=== PATIENT | male | born 1985 | race Caucasian/White ===

== ENCOUNTER 2022-08-26 13:17 | Outpatient (REF) | payer MEDICAID, SELFPAY ==
--- NOTE | ~2022-08-26 | XR_ITS ---
EXAMINATION: XR CHEST 2 VIEWS CLINICAL INFORMATION: Acute cough and recurrent fever. COMPARISON: None. TECHNIQUE: Frontal and lateral views of the chest were obtained. FINDINGS: The heart, great vessels, pulmonary vasculature and mediastinum are normal. The lungs show no focal infiltrate, effusion or pneumothorax. There are patchy foci of airspace disease in the mid right lung and at the lateral left base. There is no acute osseous abnormality. XR/XR chest 2V IMPRESSION: There are nonspecific faint patchy infiltrates noted in the mid right lung and at the lateral left base, likely acute pneumonia. Recommend radiographic follow-up to clearance. A preliminary report was provided by the [facility] on 08/28/2022.
== END 2022-08-26 13:18 | disposition home or self-care (01) ==
LOC: HO.XRAY 13:17
PROVIDERS: PCP Pediatrics; Visit Provider Internal Medicine
DX: R05.1 Acute cough (principal)
CPT/HCPCS: 71046

== ENCOUNTER 2023-08-15 10:52 | Outpatient (REF) | payer MEDICAID, SELFPAY ==
[2023-08-15 14:30] LABS: MANUAL DIFF FLAG NO
[2023-08-15 14:37] LABS: Basophils Absolute Auto 0.1 X10*3/uL (0.0-0.2); Eosinophils Absolute Auto 0.1 X10*3/uL (0.0-0.4); Eosinophils Percent Auto 1.2 % (0-4); Hematocrit 42.8 % (42.0-52.0); Hemoglobin 14.3 g/dl (14.0-18.0); Imm Gran Abs Auto 0.04 X10*3/uL (0.00-0.03); Imm Gran Pct Auto 0.5 % (0.0-0.4); Lymphocytes Absolute Auto 2.8 X10*3/uL (1.2-4.9); Lymphocytes Percent Auto 36.3 % (20-40); Mean Corpuscular HGB Conc 33.4 g/dl (31.0-36.0); Mean Corpuscular Hemoglobin 33.6 pg (27.0-33.0); Mean Corpuscular Volume 100.5 fL (80.0-98.0); Mean Platelet Volume 9.8 fL (9.4-12.4); Monocytes Absolute Auto 0.5 X10*3/uL (0.1-1.2); Monocytes Percent Auto 6.2 % (2-11); Neutrophils Absolute Auto 4.2 x10*3/uL (2.0-8.3); Neutrophils Percent Auto 54.8 % (45-73); Platelet Count 435 X10*3/uL (160-400); Red Blood Count 4.26 X10*6/uL (4.60-5.80); Red Cell Distribution Width 14.7 % (11.0-16.0); White Blood Count 7.7 X10*3/uL (4.8-10.8)
[2023-08-15 15:05] LABS: Alanine Aminotransferase 21 U/L (0-40); Albumin Level 4.2 g/dL (3.5-5.0); Alkaline Phosphatase 94 U/L (39-117); Anion Gap 13 (12-20); Aspartate Amino Transferase 21 U/L (5-37); Bilirubin Total 0.5 mg/dL (0.0-1.0); Blood Urea Nitrogen 9 mg/dL (9-16); Calcium 9.4 mg/dL (8.4-10.2); Carbon Dioxide 26 mmol/L (22-29); Chloride 106 mmol/L (96-108); Cholesterol 223 mg/dL (<200); Estimated Glomerular Filt Rate > 60; Glucose Random 104 mg/dL (60-115); HDL Cholesterol 38 mg/dL (>40); LDL Cholesterol Calculated 150 mg/dL (<100); Sodium 141 mmol/L (135-145); Total Protein 7.4 g/dL (6.5-8.0); Triglycerides 177 mg/dL (<150)
[2023-08-15 15:10] LABS: TSH reflex Free T4 1.46 uIU/mL (0.32-4.0); Vitamin D 25-OH Total 19.4 ng/mL (>30)
[2023-08-17 20:13] LABS: TS Negative Control Passed; TS Panel A 1; TS Panel B 1; TS Positive Control Passed; TSpotTB Negative (Negative)
== END 2023-08-15 10:53 | disposition home or self-care (01) ==
LOC: HO.CHCLDS 10:52
PROVIDERS: Visit Provider Pediatrics
DX: Z00.00 Encounter for general adult medical examination without abnormal findings (principal); Q90.9 Down syndrome, unspecified; E78.5 Hyperlipidemia, unspecified; E55.9 Vitamin D deficiency, unspecified
CPT/HCPCS: 36415; 80053; 80061; 82306; 84443; 85025; 86481

== ENCOUNTER 2024-11-01 11:03 | Outpatient (REF) | payer MEDICAID, SELFPAY ==
--- OUTSIDE RECORDS SUMMARY | 2024-11-01 11:49 | XMS_ITS | Encounter Summary ---
Author Organization [employer] Address [address] [facility] [address] [place] [address] Care Team Providers Care Health Technical Writer Name Role Phone Elizabeth Liao MD Primary Care Provider [phone] Encounter Details Date Type Department Care Team ([facility] st Contact Info) Description 10/28/2024 2:15 PM EDT Office Visit [facility] [address], [place] [phone] Elizabeth Liao MD [address] [place] [address] Down's syndrome (Primary Dx); Gastroesophageal reflux disease without esophagitis; Vitamin D deficiency; Elevated fasting lipid profile; Allergy, subsequent encounter; Obesity (BMI 30.0-34.9); Encounter for immunization Social History Tobacco Use Types Packs/Day Years Used Date Smoking Tobacco: Never Passive Smoke Exposure: Past Smokeless Tobacco: Never Alcohol Use Standard Drinks/Week Comments Never 0 (1 standard drink = 0.6 oz pur e alcohol) Depression Answer Date Recorded Patient Health Questionnaire-9 Score 0 08/15/2023 Patient Health Questionnaire-9 Score 0 08/15/2023 Last PHQ-9: Questionnaire Data Not on file 0 08/15/2023 Housing Stability Answer Date Recorded What is your housing situation today? I have [employer] 08/15/[address] you li ve. Do you have problems with any of the following? None of the above 08/15/2023 Food Insecurity Answer Date Recorded Within the past 12 months, y ou worried that your food would run out before you got money to buy more: Never True 08/15/2023 Within the past 12 months,th e food you bought just didn't last and you didn't have enough money to get more: Never True Transportation Answer Date Recorded In the past 12 months, has l ack of transportation kept you from medical appts, meetings, work or from getting things needed for daily living? No 08/15/2023 Utilities Answer Date Recorded In the past 12 months, has t he electric, gas, oil or water company threatened to shut off services in your home? No 08/15/2023 Depression Answer Date Recorded Patient Health Questionnaire-2 Score 0 08/15/2023 Sex and Gender Information Value Date Recorded Sex Assigned at Male 04/22/2022 10:19 AM EDT Legal Sex Male 10:19 AM EDT Gender Identity Male 04/22/2022 10:19 AM EDT Sexual Orientation Choose not to disclose 2021 10:19 AM EDT documented as of this encounter Last Filed Vital Signs Vital Sign Reading Time Taken Comments Blood Pressure 109/66 10/28/2024 2:12 PM EDT Pulse 102 10/28/2024 2:12 PM EDT Temperature 36.4 ??C (97.6 ??F) 10/28/2024 2:12 PM ED T Respiratory Rate 16 10/28/2024 2:12 PM EDT Oxygen Saturation 97% 10/28/2024 2:12 PM EDT Inhaled Oxygen Concentration - - Weight 47.2 kg (104 lb) 10/28/2024 2:12 PM EDT Height 139.7 cm (4' 7 ) 10/28/2024 2:12 PM EDT Body Mass Index 24.17 10/28/2024 2:12 PM EDT documented in this encounter Progress Notes * Elizabeth Liao MD - 10/28/2024 2:15 PM EDT Subjective Patient ID: Georgi Oconnell is a 38 y.o. male who presents for annual wellness exam. Georgi is a 38-year-old male patient of ours with Down syndrome here with mom for annual health wellness visit. Feels overall well except it seems he was seen recently with GERD symptoms. Started on omeprazole daily 1 week ago. Mom is unsure if it is helping or not so far. States she finds him snacking on food late at night. He still attends program daily and enjoys dancing. No other complaints today. He is due for tetanus booster which she will receive. He is due for fasting blood work which he will also get drawn this week. Review of Systems Constitutional: Negative for activity change, chills, fever and unexpected weight change. Respiratory: Negative for cough, shortness of breath and wheezing. Cardiovascular: Negative for chest pain, palpitations and leg swelling. Gastrointestinal: Negative for abdominal pain and blood in stool. Endocrine: Negative for polydipsia and polyuria. Genitourinary: Negative for decreased urine volume, difficulty urinating, dysuria and hematuria. Musculoskeletal: Negative for arthralgias and gait problem. Skin: Negative for color change and rash. Neurological: Negative for dizziness and headaches. Hematological: Negative for adenopathy. Psychiatric/Behavioral: Negative for dysphoric mood, hallucinations, sleep disturbance and suicidalideas. The patient is not nervous/anxious. Objective BP 109/66 (BP Location: Left arm, Patient Position: Sitting, BP Cuff Size: Adult) [id number] Temp 97.6 ??F (36.4 ??C) (Oral) Resp 16 Ht 4' 7 (1.397 m) Wt 104 lb (47.2 kg) SpO2 97% BMI 24.17 kg/m?? Physical Exam Vitals reviewed. Constitutional: General: He is not in acute distress. Appearance: He is obese. HENT: Head: Normocephalic. Right Ear: Tympanic membrane normal. Left Ear: Tympanic membrane normal. Nose: Nose normal. Mouth/Throat: Mouth: Mucous membranes are moist. Eyes: General: No scleral icterus. Conjunctiva/sclera: Conjunctivae normal. Pupils: Pupils are equal, round, and reactive to light. Cardiovascular: Rate and Rhythm: Normal rate and regular rhythm. Heart sounds: Normal heart sounds. No murmur heard. Pulmonary: Effort: Pulmonary effort is normal. No respiratory distress. Breath sounds: Normal breath sounds. Abdominal: General: There is distension. Palpations: Abdomen is soft. There is no mass. Tenderness: There is no abdominal tenderness. There is no right CVA tenderness, left CVA tenderness, guarding or rebound. Hernia: No hernia is present. Musculoskeletal: Right lower leg: No edema. Left lower leg: No edema. Skin: Capillary Refill: Capillary refill takes less than 2 seconds. Findings: No rash. Neurological: Mental Status: He is alert and oriented to person, place, and time. Psychiatric: Mood and Affect: Mood normal. Behavior: Behavior normal. Thought Content: Thought content normal. Judgment: Judgment normal. Assessment/Plan Diagnoses and all orders for this visit: Down's syndrome Comments: Georgi lives with mom and goes to program every day that he enjoys. Doing well. Orders: - Basic Metabolic Panel, Fasting; Future - Lipase; Future - Lipid Panel, Standard; Future - CBC auto differential; Future - Helicobacter pylori Antigen, EIA, Stool; Future - TSH W/Reflex to FT4; Future - Vitamin D, 25-Hydroxy, Total, Immunoassay; Future - Hepatic Function Panel; Future Gastroesophageal reflux disease without esophagitis Comments: Continue omeprazole as per Dr. Bullard as it was only started about a week ago. Check H. pylori status and treat if needed. Refer to GI if needed. Orders: - Basic Metabolic Panel, Fasting; Future - Lipase; Future - Lipid Panel, Standard; Future - CBC auto differential; Future - Helicobacter pylori Antigen, EIA, Stool; Future - TSH W/Reflex to FT4; Future - Vitamin D, 25-Hydroxy, Total, Immunoassay; Future - Hepatic Function Panel; Future Vitamin D deficiency Comments: Recheck vitamin D level with fasting labs. Treat if needed. Orders: - Basic Metabolic Panel, Fasting; Future - Lipase; Future - Lipid Panel, Standard; Future - CBC auto differential; Future - Helicobacter pylori Antigen, EIA, Stool; Future - TSH W/Reflex to FT4; Future - Vitamin D, 25-Hydroxy, Total, Immunoassay; Future - Hepatic Function Panel; Future Elevated fasting lipid profile Comments: Patient was taking fish oil twice daily but per mom he has given her very hard time to take it. Recheck lipids and treat with statin if needed. Healthy diet Orders: - Basic Metabolic Panel, Fasting; Future - Lipase; Future - Lipid Panel, Standard; Future - CBC auto differential; Future - Helicobacter pylori Antigen, EIA, Stool; Future - TSH W/Reflex to FT4; Future - Vitamin D, 25-Hydroxy, Total, Immunoassay; Future - Hepatic Function Panel; Future Allergy, subsequent encounter Comments: He is not having improvement of seasonal allergies with Zyrtec or loratadine. Switch to Emelyn 180mg daily today. Obesity (BMI 30.0-34.9) Comments: Due for fasting blood work which were ordered today plans to bring him in tomorrow morning call momwith results. Encounter for immunization Comments: Tetanus booster needed and given today without complications. TB test negative last year. Rest of vaccinations up-to-date. Orders: - TDAP VACCINE 7 yrs + Other orders - fexofenadine (Emelyn) 180 MG tablet; Take 1 tablet (180 mg) by mouth Once per day. - ketoconazole (NIZOral) 2 % shampoo; Apply topically 2 (two) times a week. documented in this encounter Plan of Treatment Scheduled Orders Name Type Priority Associated Diagnoses Orde r Schedule Basic Metabolic Panel, Fasting Lab Routine Down's syndrome Gastroesophageal reflux disease without esophagitis Vitamin D deficiency Elevated fasting lipid profile Expected: 10/28/2024 (Approximate), Expires: 10/28/2025 Lipase Lab Routine Down's syndrome Gastroesophageal reflux disease without esophagitis Vitamin D deficiency Elevated fasting lipid profile Expected: 10/28/2024, Expires: 10/28/2025 Lipid Panel, Standard Lab Routine Down's syndrome Gastroesophageal reflux disease without esophagitis Vitamin D deficiency Elevated fasting lipid profile Expected: 10/28/2024 (Approximate), Expires: 10/28/2025 CBC auto differential Lab Routine Down's syndrome Gastroesophageal reflux disease without esophagitis Vitamin D deficiency Elevated fasting lipid profile Expected: 10/28/2024 (Approximate), Expires: 10/28/2025 Helicobacter pylori??Antigen, EIA, Stool Lab Routine Down's syndrome Gastroesophageal reflux disease without esophagitis Vitamin D deficiency Elevated fasting lipid profile Expected: 10/28/2024, Expires: 10/28/2025 TSH W/Reflex to FT4 Lab Routine Down's syndrome Gastroesophageal reflux disease without esophagitis Vitamin D deficiency Elevated fasting lipid profile Expected: 10/28/2024 (Approximate), Expires: 10/28/2025 Vitamin D, 25-Hydroxy, Total, Immunoassay Lab Routine Down's syndrome Gastroesophageal reflux disease without esophagitis Vitamin D deficiency Elevated fasting lipid profile Expected: 10/28/2024 (Approximate), Expires: 10/28/2025 Hepatic Function Panel Lab Routine Down's syndrome Gastroesophageal reflux disease without esophagitis Vitamin D deficiency Elevated fasting lipid profile Expected: 10/28/2024 (Approximate), Expires: 10/28/2025 documented as of this encounter Visit Diagnoses Diagnosis Down's syndrome- Primary Gastroesophageal reflux disease without esophagitis Esophageal reflux Vitamin D deficiency Elevated fasting lipid profile Allergy, subsequent encounter Obesity (BMI 30.0-34.9) Encounter for immunization documented in this encounter Additional Health Concerns Assessment Noted Time PHQ-9 Depression Total Score: 0 08/15/19 24 10:08 AM EST documented as of this encounter Care Teams Health Technical Writer Relationship Specialty Start Date End Date Elizabeth Liao MD [address] [place] [address] PCP - General Family Medicine 06/23/18 documented as of this encounter
--- OUTSIDE RECORDS SUMMARY | 2024-11-01 11:49 | XMS_ITS | Encounter Summary ---
Author Organization [employer] Address [address] [facility] [address] [place] [address] Care Team Providers Care Applique Cutter Name Role Phone Elizabeth Liao MD Primary Care Provider [phone] Reason for Visit * Reason Onset Date Comments Nurse Triage 10/20/2024 Encounter Details Date Type Department Care Team (Late st Contact Info) Description 10/20/2024 Telephone [facility] MEDICINE [address] [place] [address] Elizabeth Liao MD [address] [place], [place] [phone] Nurse Triage Social History Tobacco Use Types Packs/Day Years [...] AM EDT documented as of this encounter Miscellaneous Notes * Telephone Encounter - Danielle Johnston RN - 10/20/2024 10:35 AM EDT Triage call Pt mother reports Pt started with diarrhea x3 10/19/24 AM and vomited last night. Pt woke up with a deep , raspy cough, temp today is 98 but, had high reading yesterday. Pt has had liquid stools today and no further vomiting. Pt reports abdominal pain until either passes diarrhea or vomits. Pt has had a sinus infection back in August of this year and Mother reports the cough is similar. Pt is urinating and drinking adequate liquids. ASK apt in [facility] today at 240pm. Mother agrees with disposition and insurance is verified as active prior to booking. Protocol Used: Diarrhea (Adult) Protocol-Based Disposition: See in Office or Video Visit within 3 Days Video visit not offered Positive Triage Questions: * Mild diarrhea (e.g., 1-3 or more stools than normal in past 24 hours) diarrhea and present > 7days (Exception: Chronic diarrhea that is not worse.) * Patient wants to be seen * All higher-acuity triage questions were negative Care Advice Discussed: * Reassurance and Education - Diarrhea * Fluid Therapy During Mild to Moderate Diarrhea * Food and Nutrition During Mild to Moderate Diarrhea * Wash Your Hands * Expected Course * Reasons To Call Back - Signs of dehydration occur (such as no urine over 12 hours, very dry mouth, lightheaded, etc.) - Moderate diarrhea lasts more than 2 days - Diarrhea lasts over 7 days - You become worse * Telephone Encounter - Alfie Pires - 10/20/2024 9:59 AM EDT Symptoms: Cough, Stools - Unusual Color, Abdominal Pain - Male Outcome: Schedule an urgent appointment (within 4 hours) or talk to a nurse or provider soon Reason: Started within the past 3 days The caller accepted this outcome. Contact pt at [phone] documented in this encounter Plan of Treatment Not on file documented as of this encounter Visit Diagnoses Not on filedocumented in this encounter Additional Health Concerns Assessment Noted Time PHQ-9 Depression Total Score: 0 08/15/19 24 10:08 AM EST documented as of this encounter Care Teams Applique Cutter Relationship Specialty Start Date End Date Elizabeth Liao MD [address] [place] [address] PCP - General Family Medicine 06/23/18 documented as of this encounter
--- OUTSIDE RECORDS SUMMARY | 2024-11-01 11:49 | XMS_ITS | Encounter Summary ---
Author Organization [employer] Address [address] [facility] [address] [place] [address] Care Team Providers Care Riding Instructor Name Role Phone Elizabeth Liao MD Primary Care Provider Reason for Visit * Reason Comments Med Refill Encounter Details Date Type Department Care Team ([facility] st Contact Info) Description 03/05/2023 Refill [facility] [address] [place] [address] Maggie Wolf MD Social History Tobacco Use Types Packs/Day Years Used Date Smoking Tobacco: Never Passive Smoke Exposure: Past Smokeless Tobacco: Never Alcohol Use Standard Drinks/Week Comments Never 0 (1 standard drink = 0.6 oz pur e alcohol) Depression Answer Date Recorded Patient Health Questionnaire-9 Score 0 06/20/2022 Depression Answer Date Recorded Patient Health Questionnaire-2 Score 0 06/20/2022 Sex and Gender Information Value Date Recorded Sex Assigned at Male 04/22/2022 10:19 AM EDT Legal Sex Male 10:19 AM EDT Gender Identity Male 04/22/2022 10:19 AM EDT Sexual Orientation Choose not to disclose 2021 10:19 AM EDT documented as of this encounter Plan of Treatment Not on file documented as of this encounter Visit Diagnoses Not on filedocumented in this encounter Additional Health Concerns Assessment Noted Time PHQ-9 Depression Total Score: 0 06/20/20 22 10:02 AM EST documented as of this encounter Care Teams Riding Instructor Relationship Specialty Start Date End Date Elizabeth Liao MD [address] [place] [address] PCP - General Family Medicine 06/23/18 documented as of this encounter
--- OUTSIDE RECORDS SUMMARY | 2024-11-01 11:49 | XMS_ITS | Encounter Summary ---
Author Organization [employer] Address [address] [facility] [address] [place] [address] Care Team Providers Care Senior Technical Writer Name Role Phone Elizabeth Liao MD Primary Care Provider [phone] Reason for Visit * Reason Onset Date Comments Nurse Triage 06/02/2023 Patient 1 of 2 Encounter Details Date Type Department Care Team (Late st Contact Info) Description 06/02/2023 Telephone [facility] MEDICINE [address] [place] [address] Elizabeth Liao MD [address] [place], [place] [phone] Nurse Triage (Patient 1 of 2/) Social History Tobacco Use Types Packs/Day Years Used Date Smoking Tobacco: Never Passive Smoke Exposure: Past Smokeless Tobacco: Never Alcohol Use Standard Drinks/Week Comments Never 0 (1 standard drink = 0.6 oz pur e alcohol) Depression Answer Date Recorded Patient Health Questionnaire-9 Score 0 06/20/2022 Housing Stability Answer Date Recorded What is your housing situation today? Not on vernell e 04/22/[address] you li ve. Do you have problems with any of the following? None of the above 04/22/2023 Food Insecurity Answer Date Recorded Within the past 12 months, y ou worried that your food would run out before you got money to buy more: Never True 04/22/2023 Within the past 12 months,th e food you bought just didn't last and you didn't have enough money to get more: Never True Transportation Answer Date Recorded In the past 12 months, has l ack of transportation kept you from medical appts, meetings, work or from getting things needed for daily living? No 04/22/2023 Utilities Answer Date Recorded In the past 12 months, has t he [employer], gas, oil or water [employer] threatened to shut off services in your home? No 04/22/2023 Depression Answer Date Recorded Patient Health Questionnaire-2 Score 0 06/20/2022 Sex and Gender Information Value Date Recorded Sex Assigned at Male 04/22/2022 10:19 AM EDT Legal Sex Male 10:19 AM EDT Gender Identity Male 04/22/2022 10:19 AM EDT Sexual Orientation Choose not to disclose 2021 10:19 AM EDT documented as of this encounter Miscellaneous Notes * Telephone Encounter - Danielle Johnston RN - 06/02/2023 10:50 AM EST Triage call Pt mother reports started symptoms of cough, chest pain, and difficulty breathing 05/30/23. Pt denies fever but, reports difficulty breathing , abdominal pain , shoulder and neck pain. Ptis producing white colored phlegm. Pt has hx of Down Syndrome. Pt is short of breath @ times Pt hastested neg for Covid. Pt mother is advised to seek evaluation at closest ED and then call for follow up apt. Pt is advised to monitor for fever, tylenol/ibuprofen for fever of 101 or higher, increaseliquid intake especially warm liquids and Pt agrees. Pt mother agrees with disposition and home care advised. Protocol Used: Cough (Adult) Protocol-Based Disposition: Go to Office or Video Visit Now Video visit offer not recorded Positive Triage Questions: * Mild difficulty breathing (e.g., minimal/no SOB at rest, SOB with walking, pulse < 100) and still present when not coughing * Wheezing is present * All higher-acuity triage questions were negative Care Advice Discussed: * Reassurance and Education - Cough * Cough Medicines * Coughing Spells * Prevent Dehydration * Humidifier * Fever Medicines * Reasons To Call Back - Difficulty breathing - Cough lasts more than 3 weeks - Fever lasts more than 3 days - You become worse * Telephone Encounter - Jaciel Duff - 06/02/2023 10:24 AM EST Symptoms: Cough, Fever, Chest Congestion Outcome: Schedule an urgent appointment (within 1 hour) or talk to a nurse or provider soon Reason: Wheezing (high-pitched whistling sound) The caller accepted this outcome documented in this encounter Plan of Treatment Not on file documented as of this encounter Visit Diagnoses Diagnosis Complete trisomy 21 syndrome Down's syndrome documented in this encounter Additional Health Concerns Assessment Noted Time PHQ-9 Depression Total Score: 0 06/20/20 10:02 AM EST documented as of this encounter Care Teams Senior Technical Writer Relationship Specialty Start Date End Date Elizabeth Liao MD [address] [place] [address] PCP - General Family Medicine 06/23/18 documented as of this encounter
--- OUTSIDE RECORDS SUMMARY | 2024-11-01 11:49 | XMS_ITS | Clinical Summary ---
Author Organization [employer] Address 75 [facility] 7t [place] [address] Care Team Providers Care Fire Hose Curer Name Role Phone Elizabeth Liao MD Primary Care Provider [phone] Allergies No known active allergies Medications triamcinolone (Kenalog) 0.025 % ointmentIndica tions:Complete trisomy 21 syndrome Apply topically 2 times daily. 30 g 3 06/20/20 22 Active fish oil (Fish Oil) 500 MG capsule Take 2 capsules (1,000 mg) by mouth in the morning. 60 capsule 11 09/21/19 23 Active triamcinolone (Kenalog) 0.1 % cream Apply topically if needed in the morning and at bedtime (pain and swelling). 30 g 11 08/15/19 24 Active bacitracin (RA Bacitracin) 500 UNIT/GM ointment Apply topically 2 times daily. 28 g 3 08/15/19 24 Active ergocalciferol (Vitamin D2) 1.25 MG (64846 UT) capsule TAKE ONE CAPSULE ONCE PER WEEK 15 capsule 10/17/19 24 Active cyanocobalamin (Vitamin B-12) 500 MCG tablet TAKE ONE TABLET EVERY MORNING 90 tablet 3 10/24/19 24 Active omeprazole OTC (PriLOSEC OTC) 20 MG EC tablet Take 1 tablet (20 mg) by mouth before breakfast. Do not crush, chew, or split. 30 tablet 11 10/21/19 25 026 Active albuterol 108 (90 Base) MCG/ACT inhaler INHALE 1 PUFF THREE TIMES DAILY 09/05/19 25 Active omeprazole (PriLOSEC) [address] capsule TAKE ONE CAPSULE DAILY BEFORE BREAKFAST 10/21/19 25 Active fexofenadine (Emelyn) 180 MG tablet Take 1 tablet (180 mg) by mouth Once per day. 30 tablet 10/29/19 25 026 Active ketoconazole (NIZOral) 2 % shampoo Apply topically 2 (two) times a week. 120 mL 10/29/19 25 Active cetirizine (ZyrTEC) 10 MG tablet TAKE ONE TABLET BY MOUTH EVERY MORNING 90 tablet 08/01/19 24 025 Discontinued(Th erapy completed) ketoconazole (NIZOral) 2 % shampoo Apply topically 2 (two) times a week. 120 mL 10/20/19 24 025 Discontinued(Re order (will not trigger notification to Pharmacy)) Active Problems Problem Noted Date Diagnosed Date Allergies 09/17/2022 Elevated fasting lipid profile 06/20/2022 Overview (06/20/2022): On diet control only. Check lipids ,Treat if needed. 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 Acne 11/06/2011 Encounters Date Type Department Care Team Description 10/28/2024 2:15 PM EDT Office Visit [facility] [address] [place] [address] Elizabeth Liao MD Down's syndrome (Primary Dx); Gastroesophageal reflux disease without esophagitis; Vitamin D deficiency; Elevated fasting lipid profile; Allergy, subsequent encounter; Obesity (BMI 30.0-34.9); Encounter for immunization 10/28/2024 Travel 10/21/2024 Patient Outreach [facility] [address] [place] [address] Elizabeth Liao MD Pre-visit Planning (Pre visit planning LVM ) 10/20/2024 2:40 PM EDT Office Visit [facility] [address] [place], [place] [phone] Rebekah Bullard MD Gastroesophageal reflux disease without esophagitis (Primary Dx) 10/20/2024 Travel 10/20/2024 Telephone [facility] [address] [place], [place] [phone] Elizabeth Liao MD Nurse Triage from Last 3 Months Immunizations Name Administration Dates Next Due Tdap 10/28/2024,11/06/2011 Social History Tobacco Use Types Packs/Day Years Used Date Smoking Tobacco: Never Passive Smoke Exposure: Past Smokeless Tobacco: Never Tobacco Cessation:Counseling Given: Not Answered Alcohol Use Standard Drinks/Week Comments Never 0 [...] not to disclose 2021 10:19 AM EDT Last Filed Vital Signs Vital Sign Reading [...] Mass Index 24.17 10/28/2024 2:12 PM EDT Plan of Treatment Health Maintenance Due Date Last Done Comments HIV Screening 1983 Alcohol/Substance Use Screening 1995 Family Planning (PISQ) 12/23/1998 Hepatitis C Screening 12/23/2001 Hepatitis B Vaccines (1 of 3 - 19+ 3-dose series) 12/23/2002 COVID-19 Vaccine (2023-2 5 season) 2024 Influenza Vaccine (#1) 2024 Depression Screening 08/15/2024 08/15/2023, 08/15/2023 SDOH Screening 08/15/2024 08/15/2023 Tobacco Screening 10/28/2025 10/28/2024 Lipid Panel 08/15/2028 08/15/2023, 09/17/2022 Zoster Vaccines (1 of 2) 12/23/2033 DTaP/Tdap/Td Vaccines (3 - T d or Tdap) 10/28/2034 10/28/2024, 11/06/2011 RSV Patients and Patients Aged 60 years or older (1 - 1-dose 75+ series) 12/23/2058 HIB Vaccines Aged Out No longer eligi ble based on patient's age to complete this topic HPV Vaccines Aged Out No longer eligi ble based on patient's age to complete this topic Hepatitis A Vaccines Aged Out No long er eligible based on patient's age to complete this topic IPV Vaccines Aged Out No longer eligi ble based on patient's age to complete this topic Meningococcal Vaccine Aged Out No elmer deidre eligible based on patient's age to complete this topic Pneumococcal Vaccine: Pediatrics (0 to 5 Years) and At-Risk Patients (6 to 49) Years) Aged Out No longer eligible b ased on patient's age to complete this topic RSV under 20 months Aged Out No longe r eligible based on patient's age to complete this topic Rotavirus Vaccines Aged Out No longer eligible based on patient's age to complete this topic Procedures Procedure Name Priority Date/Time Associated Diagnosis Comments LIPID PANEL, STANDARD Routine 08/15/2023 10:54 AM EST Down's syndrome Routine general medical examination at a health care facility Elevated fasting lipid profile from Last 3 Months or Most Recently Relevant to Health Maintenance Results * (ABNORMAL) Lipid Panel, Standard (08/15/2023 10:54 AM EST) Triglycerides 177(H) <150 mg/dL [facility] Comment:Desirable Triglyceri de: less than 150 mg/dLBorderline High Triglyceride 150-199 mg/dLHigh Triglyceride: 200-499 mg/dLVery High Triglyceride: greater than or equal to 5OO mg/dL Cholesterol 223(H) <200 mg/dL [facility] Comment:Desirable Cholestero l: less than 200 mg/dLBorderline High Cholesterol: 200-239 mg/dLHigh Cholesterol: greater than 239 mg/dL LDL Cholesterol Calculated 150(H) <100 mg/dL [facility] Comment:Desirable LDL: less than 100 mg/dLNear Optimal/Above Optimal LDL: 110- 129 mg/dLBorderline High LDL: 130-159 mg/dLHigh LDL: 160-189 mg/dLVery High LDL: greater than or equal to 190 mg/dL HDL Cholesterol 38(L) >40 mg/dL [facility] Comment:Desirable HDL: great er than 40 mg/dL Note: This HDL assay may give artificially low results in patients with liver disease. Blood Venous blood specimen / Unknown 08/15/2023 10:54 AM EST 08/15/2023 2:23 PM EST us Elizabeth Liao MD LAB BLOOD ORDERABLES Final Re sult [facility] [address] [place] [address] [phone] from Last 3 Months or Most Recently Relevant to Health Maintenance Insurance [facility]ARE [facility] Care Teams Fire Hose Curer Relationship Specialty Start Date End Date Elizabeth Liao MD [address] [place] [phone] PCP - General Family Medicine 06/23/18
--- OUTSIDE RECORDS SUMMARY | 2024-11-01 11:49 | XMS_ITS | Encounter Summary ---
Author Organization [employer] Address 75 [facility] 7t [place] [address] Care Team Providers Care Castings Trimmer Name Role Phone Elizabeth Liao MD Primary Care Provider [phone] Encounter Details Date Type Department Care Team (Latest Contact Info) Description 10/28/2024 Travel Social History Tobacco Use Types Packs/Day Years [...] documented as of this encounter Care Teams Castings Trimmer Relationship Specialty Start Date End Date Elizabeth Liao MD [address] [place] [address] PCP - General Family Medicine 06/23/18 documented as of this encounter
[2024-11-01 14:18] LABS: MANUAL DIFF FLAG NO
[2024-11-01 14:27] LABS: Basophils Absolute Auto 0.1 X10*3/uL (0.0-0.2); Basophils Percent Auto 0.7 % (0-2); Eosinophils Absolute Auto 0.2 X10*3/uL (0.0-0.4); Eosinophils Percent Auto 1.8 % (0-4); Hematocrit 44.2 % (42.0-52.0); Hemoglobin 14.7 g/dl (14.0-18.0); Imm Gran Abs Auto 0.09 X10*3/uL (0.00-0.03); Imm Gran Pct Auto 1.1 % (0.0-0.4); Lymphocytes Absolute Auto 3.1 X10*3/uL (1.2-4.9); Lymphocytes Percent Auto 37.3 % (20-40); Mean Corpuscular HGB Conc 33.3 g/dl (31.0-36.0); Mean Corpuscular Volume 99.1 fL (80.0-98.0); Monocytes Absolute Auto 0.7 X10*3/uL (0.1-1.2); Monocytes Percent Auto 7.9 % (2-11); Neutrophils Absolute Auto 4.2 x10*3/uL (2.0-8.3); Neutrophils Percent Auto 51.2 % (45-73); Platelet Count 502 X10*3/uL (160-400); Red Blood Count 4.46 X10*6/uL (4.60-5.80); Red Cell Distribution Width 14.8 % (11.0-16.0); White Blood Count 8.3 X10*3/uL (4.8-10.8)
[2024-11-01 15:18] LABS: Alanine Aminotransferase 33 U/L (0-40); Albumin Level 4.2 g/dL (3.5-5.0); Anion Gap 13 (12-20); Aspartate Amino Transferase 41 U/L (5-37); Bilirubin Direct 0.2 mg/dL (0.0-0.5); Bilirubin Total 0.7 mg/dL (0.0-1.0); Blood Urea Nitrogen 10 mg/dL (9-16); Calcium 9.4 mg/dL (8.4-10.2); Carbon Dioxide 27 mmol/L (22-29); Chloride 105 mmol/L (96-108); Cholesterol 218 mg/dL (<200); Estimated Glomerular Filt Rate > 60; Glucose Fasting 99 mg/dL (60-99); HDL Cholesterol 37 mg/dL (>40); LDL Cholesterol Calculated 147 mg/dL (<100); Lipase 17 U/L (8-78); Potassium 3.7 mmol/L (3.3-5.1); Sodium 141 mmol/L (135-145); Total Protein 7.3 g/dL (6.5-8.0); Triglycerides 171 mg/dL (<150)
[2024-11-01 15:29] LABS: TSH reflex Free T4 2.92 uIU/mL (0.32-4.0); Vitamin D 25-OH Total 40.7 ng/mL (>30)
[2024-11-01 16:43] LABS: Alkaline Phosphatase 98 U/L (39-117)
== END 2024-11-01 11:04 | disposition home or self-care (01) ==
LOC: HO.CHCLDS 11:03
PROVIDERS: Visit Provider Pediatrics
DX: Q90.9 Down syndrome, unspecified (principal); K21.9 Gastro-esophageal reflux disease without esophagitis; E55.9 Vitamin D deficiency, unspecified; E78.5 Hyperlipidemia, unspecified
CPT/HCPCS: 36415; 80048; 80061; 80076; 82306; 83690; 84443; 85025

== ENCOUNTER 2024-11-01 15:52 | Outpatient (REF) | payer MEDICAID, SELFPAY ==
--- OUTSIDE RECORDS SUMMARY | 2024-11-01 15:56 | XMS_ITS | Encounter Summary ---
Author Organization [employer] Address 75 [facility] 7[address] [place] [address] Care Team Providers Care Rv Body Mechanic Name Role Phone Elizabeth Liao MD Primary Care Provider [phone] Reason for Visit * Reason Comments Med Refill Encounter Details Date Type Department Care Team ([facility] st Contact Info) Description 03/05/2023 Refill [facility] [address] [place] [address] Maggie Wolf MD Social History Tobacco Use [...] documented as of this encounter Care Teams Rv Body Mechanic Relationship Specialty Start Date End Date Elizabeth Liao MD [address] [place] [address] PCP - General Family Medicine 06/23/18 documented as of this encounter
--- OUTSIDE RECORDS SUMMARY | 2024-11-01 15:56 | XMS_ITS | Clinical Summary ---
Author Organization [employer] Address [address] [facility] 7t [place] [address] Care Team Providers Care Door Manager Name Role Phone Elizabeth Liao MD Primary Care Provider [phone] Allergies No known active allergies Medications triamcinolone [...] 24 Active ergocalciferol (Vitamin D2) 1.25 MG (24269 UT) capsule TAKE ONE CAPSULE ONCE PER [...] Description 10/28/2024 2:15 PM EDT Office Visit [facility] [address] [place] [address] Elizabeth Liao MD Down's syndrome (Primary Dx); Gastroesophageal reflux disease without esophagitis; Vitamin D deficiency; Elevated fasting lipid profile; Allergy, subsequent encounter; Obesity (BMI 30.0-34.9); Encounter for immunization 10/28/2024 Travel 10/21/2024 Patient Outreach [facility] [address] [place] [phone] Elizabeth Liao MD Pre-visit Planning (Pre visit planning LVM ) 10/20/2024 2:40 PM EDT Office Visit [facility] [address] [place], [place] [phone] Rebekah Bullard MD Gastroesophageal reflux disease without esophagitis (Primary Dx) 10/20/2024 Travel 10/20/2024 Telephone [facility] [address] [place], [place] [phone] Elizabeth Liao MD Nurse Triage from Last [...] - 19+ 3-dose series) 12/23/2002 COVID-19 Vaccine ( - 2023-2 5 season) 2024 Influenza Vaccine (#1) 2024 Depression Screening 08/15/2024 08/15/2023, 08/15/2023 SDOH Screening 08/15/2024 08/15/2023 Tobacco Screening 10/28/2025 10/28/2024 Lipid Panel 11/01/2029 11/01/2024, 08/15/2023, 09/17/2022 Zoster Vaccines (1 of 2) [...] Procedure Name Priority Date/Time Associated Diagnosis Comments HEPATIC FUNCTION PANEL Routine 11/01/2024 11:05 AM EDT Down's syndrome Gastroesophageal reflux disease without esophagitis Vitamin D deficiency Elevated fasting lipid profile VITAMIN D,25-OH,TOTAL,IA Routine 11/01/2024 11:05 AM EDT Down's syndrome Gastroesophageal reflux disease without esophagitis Vitamin D deficiency Elevated fasting lipid profile TSH W/REFLEX TO FT4 Routine 11/01/2024 1 1:05 AM EDT Down's syndrome Gastroesophageal reflux disease without esophagitis Vitamin D deficiency Elevated fasting lipid profile CBC WITH AUTO DIFFERENTIAL Routine 11/01/2024 11:05 AM EDT Down's syndrome Gastroesophageal reflux disease without esophagitis Vitamin D deficiency Elevated fasting lipid profile LIPID PANEL, STANDARD Routine 11/01/2024 11:05 AM EDT Down's syndrome Gastroesophageal reflux disease without esophagitis Vitamin D deficiency Elevated fasting lipid profile LIPASE Routine 11/01/2024 11:05 AM EDT Down's syndrome Gastroesophageal reflux disease without esophagitis Vitamin D deficiency Elevated fasting lipid profile BASIC METABOLIC PANEL, FASTING Routine 11/01/2024 11:05 AM EDT Down's syndrome Gastroesophageal reflux disease without esophagitis Vitamin D deficiency Elevated fasting lipid profile from Last 3 Months Results * (ABNORMAL) CBC auto differential (11/01/2024 11:05 AM EDT) White Blood Count 8.3 4.8 - 10.8 X10*3/uL [facility] Red Blood Count 4.46(L) 4.60 - 5.80 X10*6/uL [facility] Hemoglobin 14.7 14.0 - 18.0 g/dl [facility] Hematocrit 44.2 42.0 - 52.0 % [facility] Mean Corpuscular Volume 99.1(H) 80.0 - 98.0 fL [facility] Mean Corpuscular Hemoglobin 33.0 27.0 - 33.0 pg [facility] Mean Corpuscular HGB Conc 33.3 31.0 - 36.0 g/dl [facility] Red Cell Distribution Width 14.8 11.0 - 16.0 % [facility] Platelet Count 502(H) 160 - 400 X10*3/uL [facility] Mean Platelet Volume 10.0 9.4 - 12.4 fL [facility] Neutrophils Percent Auto 51.2 45 - 73 % [facility] Imm Gran Pct Auto 1.1(H) 0.0 - 0.4 % [facility] Lymphocytes Percent Auto 37.3 20 - 40 % [facility] Monocytes Percent Auto 7.9 2 - 11 % [facility] Eosinophils Percent Auto 1.8 0 - 4 % [facility] Basophils Percent Auto 0.7 0 - 2 % [facility] NRBC Pct Auto 0.0 0.0 - 0.2 /100WBC [facility] Neutrophils Absolute Auto 4.2 2.0 - 8.3 x10*3/uL [facility] Imm Gran Abs Auto 0.09(H) 0.00 - 0.03 X10*3/uL [facility] Lymphocytes Absolute Auto 3.1 1.2 - 4.9 X10*3/uL [facility] Monocytes Absolute Auto 0.7 0.1 - 1.2 X10*3/uL [facility] Eosinophils Absolute Auto 0.2 0.0 - 0.4 X10*3/uL [facility] Basophils Absolute Auto 0.1 0.0 - 0.2 X10*3/uL [facility] NRBC Abs Auto 0.000 0.0 - 0.012 X10*3/uL [facility] Blood Venous blood specimen / Unknown 11/01/2024 11:05 AM EDT 11/01/2024 2:10 PM EDT us Elizabeth Liao MD LAB BLOOD ORDERABLES Final Re sult [facility] [address] [place] [address] [phone] from Last 3 Months Insurance MEDICARE [facility] STANDARD Care Teams Door Manager Relationship Specialty Start Date End Date Elizabeth Liao MD [address] [place], [place] PCP - General Family Medicine 06/23/18
--- OUTSIDE RECORDS SUMMARY | 2024-11-01 15:56 | XMS_ITS | Encounter Summary ---
Author Organization [employer] Address 75 [facility] 7t [place] [address] Care Team Providers Care Gas Turbine Powerplant Mechanic Helper Name Role Phone Elizabeth Liao MD Primary Care Provider [phone] Encounter Details Date Type Department Care Team [...] documented as of this encounter Care Teams Gas Turbine Powerplant Mechanic Helper Relationship Specialty Start Date End Date Elizabeth Liao MD [address] [place] [address] PCP - General Family Medicine 06/23/18 documented as of this encounter
--- OUTSIDE RECORDS SUMMARY | 2024-11-01 15:56 | XMS_ITS | Encounter Summary ---
Author Organization [employer] Address 75 [facility] 7t [place] [address] Care Team Providers Care Dehydrogenation Operator Name Role Phone Elizabeth Liao MD Primary Care Provider [phone] Reason for Visit * Reason Onset Date Comments Nurse Triage 10/20/2024 Encounter Details Date Type Department Care Team (Late st Contact Info) Description 10/20/2024 Telephone [facility] [address] [place] [address] Elizabeth Liao MD [address] [place], [place] [phone] Nurse Triage Social History Tobacco Use Types [...] and drinking adequate liquids. ASK apt in [facility] today at 240pm. Mother agrees with disposition [...] caller accepted this outcome. Contact pt at [phone] documented in this encounter Plan of Treatment Not on file documented as of this encounter Visit Diagnoses Not on filedocumented in this encounter Additional Health Concerns Assessment Noted Time PHQ-9 Depression Total Score: 0 08/15/19 24 10:08 AM EST documented as of this encounter Care Teams Dehydrogenation Operator Relationship Specialty Start Date End Date Elizabeth Liao MD [address] [place] [address] PCP - General Family Medicine 06/23/18 documented as of this encounter
--- OUTSIDE RECORDS SUMMARY | 2024-11-01 15:56 | XMS_ITS | Encounter Summary ---
Author Organization [employer] Address 75 [facility] 7t [place] [address] Care Team Providers Care Tower Supervisor Name Role Phone Elizabeth Liao MD Primary Care Provider [phone] Encounter Details Date Type Department Care Team ([facility] st Contact Info) Description 10/28/2024 2:15 PM EDT Office Visit [facility] [address] [place], [place] [phone] Elizabeth Liao MD [address] [place] [address] Down's syndrome (Primary Dx); Gastroesophageal reflux disease [...] Patient Position: Sitting, BP Cuff Size: Adult) [id number] Temp 97.6 ??F (36.4 ??C) (Oral) Resp [...] documented in this encounter Plan of Treatment Pending Results Name Type Priority Associated Diagnoses Date /Time Basic Metabolic Panel, Fasting Lab Routine Down's syndrome Gastroesophageal reflux disease without esophagitis Vitamin D deficiency Elevated fasting lipid profile 11/01/2024 11:05 AM EDT Lipase Lab Routine Down's syndrome Gastroesophageal reflux disease without esophagitis Vitamin D deficiency Elevated fasting lipid profile 11/01/2024 11:05 AM EDT Lipid Panel, Standard Lab Routine Down's syndrome Gastroesophageal reflux disease without esophagitis Vitamin D deficiency Elevated fasting lipid profile 11/01/2024 11:05 AM EDT TSH W/Reflex to FT4 Lab Routine Down's syndrome Gastroesophageal reflux disease without esophagitis Vitamin D deficiency Elevated fasting lipid profile 11/01/2024 11:05 AM EDT Vitamin D, 25-Hydroxy, Total, Immunoassay Lab Routine Down's syndrome Gastroesophageal reflux disease without esophagitis Vitamin D deficiency Elevated fasting lipid profile 11/01/2024 11:05 AM EDT Hepatic Function Panel Lab Routine Down's syndrome Gastroesophageal reflux disease without esophagitis Vitamin D deficiency Elevated fasting lipid profile 11/01/2024 11:05 AM EDT Scheduled Orders Name Type Priority Associated Diagnoses Orde r Schedule Helicobacter pylori??Antigen, EIA, Stool Lab Routine Down's syndrome Gastroesophageal reflux disease without esophagitis Vitamin D deficiency Elevated fasting lipid profile Expected: 10/28/2024, Expires: 10/28/2025 documented as of this encounter Procedures Procedure Name Priority Date/Time Associated Diagnosis Comments BASIC METABOLIC PANEL, FASTING Routine 11/01/2024 11:05 [...] Vitamin D deficiency Elevated fasting lipid profile HEPATIC FUNCTION PANEL Routine 11/01/2024 11:05 AM EDT Down's syndrome Gastroesophageal reflux disease without esophagitis Vitamin D deficiency Elevated fasting lipid profile LIPID PANEL, STANDARD Routine 11/01/2024 11:05 AM EDT Down's syndrome Gastroesophageal reflux disease without esophagitis Vitamin D deficiency Elevated fasting lipid profile documented in this encounter Results * (ABNORMAL) CBC auto differential (11/01/2024 11:05 AM EDT) White Blood Count 8.3 4.8 - 10.8 X10*3/uL [facility] Red Blood Count 4.46(L) 4.60 - 5.80 X10*6/uL [facility] Hemoglobin 14.7 14.0 - 18.0 g/dl [facility] Hematocrit 44.2 42.0 - 52.0 % [facility] Mean Corpuscular Volume 99.1(H) 80.0 - 98.0 fL [facility] Mean Corpuscular Hemoglobin 33.0 27.0 - 33.0 pg [facility] Mean Corpuscular HGB Conc 33.3 31.0 - 36.0 g/dl [facility] Red Cell Distribution Width 14.8 11.0 - 16.0 % [facility] Platelet Count 502(H) 160 - 400 X10*3/uL [facility] Mean Platelet Volume 10.0 9.4 - 12.4 fL [facility] Neutrophils Percent Auto 51.2 45 - 73 % [facility] Imm Gran Pct Auto 1.1(H) 0.0 - 0.4 % [facility] Lymphocytes Percent Auto 37.3 20 - 40 % [facility] Monocytes Percent Auto 7.9 2 - 11 % [facility] Eosinophils Percent Auto 1.8 0 - 4 % [facility] Basophils Percent Auto 0.7 0 - 2 % [facility] NRBC Pct Auto 0.0 0.0 - 0.2 /100WBC [facility] Neutrophils Absolute Auto 4.2 2.0 - 8.3 x10*3/uL [facility] Imm Gran Abs Auto 0.09(H) 0.00 - 0.03 X10*3/uL [facility] Lymphocytes Absolute Auto 3.1 1.2 - 4.9 X10*3/uL [facility] Monocytes Absolute Auto 0.7 0.1 - 1.2 X10*3/uL [facility] Eosinophils Absolute Auto 0.2 0.0 - 0.4 X10*3/uL [facility] Basophils Absolute Auto 0.1 0.0 - 0.2 X10*3/uL [facility] NRBC Abs Auto 0.000 0.0 - 0.012 X10*3/uL [facility] Blood Venous blood specimen / Unknown 11/01/2024 11:05 AM EDT 11/01/2024 2:10 PM EDT us Elizabeth Liao MD LAB BLOOD ORDERABLES Final Re sult [facility] [address] [place] [address] [phone] documented in this encounter Visit Diagnoses Diagnosis Down's syndrome- Primary Gastroesophageal reflux disease without esophagitis Esophageal reflux Vitamin D deficiency Elevated fasting lipid profile Allergy, subsequent encounter Obesity (BMI 30.0-34.9) Encounter for immunization documented in this encounter Additional Health Concerns Assessment Noted Time PHQ-9 Depression Total Score: 0 08/15/19 24 10:08 AM EST documented as of this encounter Care Teams Tower Supervisor Relationship Specialty Start Date End Date Elizabeth Liao MD [address] [place] [phone] PCP - General Family Medicine 06/23/18 documented as of this encounter
--- OUTSIDE RECORDS SUMMARY | 2024-11-01 15:56 | XMS_ITS | Encounter Summary ---
Author Organization [employer] Address 75 [facility] 7t [place] [address] Care Team Providers Care Housing Grant Analyst Name Role Phone Elizabeth Liao MD Primary Care Provider Reason for Visit * Reason Onset Date Comments Nurse Triage 06/02/2023 Patient 1 of 2 Encounter Details Date Type Department Care Team (Late st Contact Info) Description 06/02/2023 Telephone [facility] [address] [place] [address] Elizabeth Liao MD [address] [place], [place] [phone] Nurse Triage (Patient 1 of 2/) Social [...] the past 12 months, has t he [employer], gas, oil or water [employer] threatened to shut off services in your [...] documented as of this encounter Care Teams Housing Grant Analyst Relationship Specialty Start Date End Date Elizabeth Liao MD [address] [place] [address] PCP - General Family Medicine 06/23/18 documented as of this encounter
== END 2024-11-01 15:53 | disposition home or self-care (01) ==
LOC: HO.CHCLNP 15:52
PROVIDERS: Visit Provider Pediatrics
DX: Q90.9 Down syndrome, unspecified (principal); K21.9 Gastro-esophageal reflux disease without esophagitis; E55.9 Vitamin D deficiency, unspecified; E78.5 Hyperlipidemia, unspecified
CPT/HCPCS: 87338